=== PATIENT | male | born 1955 | race Caucasian/White ===

== ENCOUNTER 2023-04-03 13:37 | Outpatient (CLI) | payer MEDICARE | END 2023-04-03 13:38 | disposition home or self-care (01) | LOC: CSHWCC 13:37 | PROVIDERS: ATTEND Nurse Practitioner Family | DX: T81.89XD Other complications of procedures, not elsewhere classified, subsequent encounter (principal) | CPT/HCPCS: 97139; G0463; 99203 ==

== ENCOUNTER 2023-05-08 08:00 | Outpatient (CLI) | payer MEDICARE | END 2023-05-08 08:01 | disposition home or self-care (01) | LOC: CSHWCC 08:00 | PROVIDERS: ATTEND Nurse Practitioner Family | DX: S41.001D Unspecified open wound of right shoulder, subsequent encounter (principal) | CPT/HCPCS: 97139; G0463; 99212 ==

== ENCOUNTER 2023-05-29 08:02 | Outpatient (CLI) | payer MEDICARE | END 2023-05-29 08:03 | disposition home or self-care (01) | LOC: CSHWCC 08:02 | PROVIDERS: ATTEND Nurse Practitioner Family | DX: S41.001D Unspecified open wound of right shoulder, subsequent encounter (principal) | CPT/HCPCS: 97139; G0463; 99212 ==